=== PATIENT | female | born 1960 ===

== ENCOUNTER 2023-10-10 11:58 | Emergency (ER) | payer MEDICAID, SELFPAY ==
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
[2023-10-10 12:08] VITALS: BP 158/72; PULSE 74; O2SAT 98
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
[2023-10-10 12:15] VITALS: BP 133/60; PULSE 74; RESP 20; TEMP 37.1; O2SAT 99; BMI 28.2
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
[2023-10-10 15:53] VITALS: BP 122/67; PULSE 65; RESP 16; TEMP 36.4; O2SAT 100
[2023-10-10 15:56] VITALS: BP 122/67; PULSE 65; RESP 16; TEMP 36.4; O2SAT 100
== END 2023-10-10 16:01 | disposition home or self-care (01) ==
PROVIDERS: Emergency Provider Emergency Medicine
DX: S80.02XA Contusion of left knee, initial encounter (principal); S39.012A Strain of muscle, fascia and tendon of lower back, initial encounter; V73.6XXA Passenger on bus injured in collision with car, pick-up truck or van in traffic accident, initial encounter; Y93.89 Activity, other specified; Y92.414 Local residential or business street as the place of occurrence of the external cause; Y99.9 Unspecified external cause status
CPT/HCPCS: 72100; 73562; 99282; 99283